=== PATIENT | female | born 1940 | race Caucasian/White ===

== ENCOUNTER 2021-05-31 08:23 | Outpatient (CLI) | payer MEDICARE | END 2021-05-31 08:24 | disposition home or self-care (01) | LOC: BICULT 08:23 | PROVIDERS: ATTEND Internal Medicine Gastroenterology | DX: R10.11 Right upper quadrant pain (principal); D64.9 Anemia, unspecified; Z86.010 Personal history of colon polyps; K76.0 Fatty (change of) liver, not elsewhere classified; N28.1 Cyst of kidney, acquired; Z90.49 Acquired absence of other specified parts of digestive tract | CPT/HCPCS: 76705 ==

== ENCOUNTER 2023-02-13 13:04 | Outpatient (CLI) | payer MEDICARE | END 2023-02-13 13:05 | disposition home or self-care (01) | LOC: RAD 13:04 | PROVIDERS: ATTEND Family Medicine | DX: M25.561 Pain in right knee (principal); M11.261 Other chondrocalcinosis, right knee ==

== ENCOUNTER 2024-04-28 12:19 | Outpatient (CLI) | payer MEDICARE ==
[~2024-04-28 12:19] MED LIST: Magnevist 469MG/ML 20 ML VIAL ONE
== END 2024-04-28 12:20 | disposition home or self-care (01) ==
LOC: MRI 12:19
PROVIDERS: ATTEND Internal Medicine Gastroenterology
DX: D64.9 Anemia, unspecified (principal); K76.0 Fatty (change of) liver, not elsewhere classified; K74.60 Unspecified cirrhosis of liver; D49.0 Neoplasm of unspecified behavior of digestive system; Z79.01 Long term (current) use of anticoagulants; K76.89 Other specified diseases of liver; K86.2 Cyst of pancreas
CPT/HCPCS: 74183